=== PATIENT | male | born 2000 | race Caucasian/White ===

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

== ENCOUNTER 2021-12-07 07:26 | Emergency (ER) | payer OTHER ==
--- OUTSIDE RECORDS SUMMARY | 2021-12-07 07:29 | XMS REPORT | Continuity of Care Document ---
:2000 Author Organization [facility] t Address [facility] access [facility] Dave [address] [place] [id number] Care Team Providers Name Role Phone Unavailable Unavailable Unavailable Problems This patient has no known problems. Allergies, Adverse Reactions, Alerts This patient has no known allergies or adverse reactions. Medications This patient has no known medications. Procedures This patient has no known procedures. Encounters Start End Encounter Admission Attending Care Care Encounter Source Date/Time Date/Time Type Type Clinicians Facility Department ID 2021-10-02 Outpatient [facility] [id number] Common 13:34:03 [facility] Results This patient has no known results.
--- NOTE | 2021-12-07 08:43 | ER ---
Nurse's Notes [facility] Name: Lencho Kirby Age: 21 yrs Sex: Male : 2000 Arrival Date: 12/07/2021 Time: 07:28 Bed 9 Private MD: Diagnosis: Displaced fracture of shaft of fifth metacarpal bone, left hand, initial encounter for closed fracture Presentation: 12/07 07:31 Chief complaint: Patient states: "I think I re-broke my left hand.". Coronavirus jd3 screen: At this time, the client does not indicate any symptoms associated with coronavirus-19. Ebola Screen: No symptoms or risks identified at this time. Initial Sepsis Screen: Does the patient meet any 2 criteria? No. Patient's initial sepsis screen is negative. Does the patient have a suspected source of infection? No. Patient's initial sepsis screen is negative. Risk Assessment: Do you want to hurt yourself or someone else? Patient reports no desire to harm self or others. Onset of symptoms was December 06, 2021. 07:31 Method Of Arrival: Ambulatory jd3 07:31 Acuity: KING 4 jd3 Historical: - Allergies: 07:32 Codeine; jd3 - Home Meds: 07:32 Remeron Oral [Active]; jd3 - PMHx: 07:32 None; jd3 - PSHx: 07:32 None; jd3 - Immunization history:: Adult Immunizations up to date, Client reports having NOT received the Covid vaccine. - Social history:: Smoking status: Reported history of juuling and/or vaping. Screenin:01 Abuse screen: Denies threats or abuse. Denies injuries from another. Nutritional iw screening: No deficits noted. Tuberculosis screening: No symptoms or risk factors identified. Fall Risk None identified. Assessment: 09:01 General: Appears in no apparent distress. Behavior is calm, cooperative. Pain: iw Complains of pain in left hand. Neuro: Level of Consciousness is awake, alert, obeys commands, Oriented to person, place, time, situation. Derm: Skin is intact, is healthy with good turgor. Musculoskeletal: Range of motion: intact in all extremities. Vital Signs: 07:33 BP 144 / 84; Pulse 85; Resp 17 S; Temp 98.1(TE); Pulse Ox 100% on R/A; Weight 99.79 kg jd3 (R); Height 6 ft. 0 in. (182.88 cm) (R); Pain 7/10; 07:33 Body Mass Index 29.84 (99.79 kg, 182.88 cm) jd3 ED Course: 07:28 Patient arrived in ED. as 07:32 Triage completed. jd3 07:33 Arm band placed on. jd3 07:35 Emperatriz Villarreal, RN is Primary Nurse. iw 07:37 Ishan Lopez MD is Attending Physician. kdr 08:35 Hand Left 3 View XRAY In Process Unspecified. EDMS 08:56 Orthoglass splint: Ulnar gutter/Boxer splint applied on left forearm. em1 09:00 Patient has correct armband on for positive identification. iw 09:01 No provider procedures requiring assistance completed. Patient did not have IV access iw during this emergency room visit. Administered Medications: 08:50 Drug: Ibuprofen 800 mg Route: PO; iw 09:00 Follow up: Response: No adverse reaction iw Medication: 09:00 VIS not applicable for this client. iw Outcome: 08:42 Discharge ordered by . kdr 09:01 Discharged to home ambulatory. iw 09:01 Condition: good 09:01 Discharge instructions given to patient, Instructed on discharge instructions, follow up and referral plans. medication usage, Demonstrated understanding of instructions, follow-up care, medications, Prescriptions given X 1. 09:02 Patient left the ED. iw Signatures: Dispatcher [employer] EDMS Ishan Lopez MD MD kdr Lin Medina as Emperatriz Villarrela, RN RN iw Sathya Medina em1 Jonathan Cruz RN RN jd3 Corrections: (The following items were deleted from the chart) 07:33 07:32 PMHx: None; jd3 jd3
--- NOTE | 2021-12-07 08:43 | EDPHYS ---
Physician Documentation [facility] Name: Lencho Kirby Age: 21 yrs Sex: Male : 2000 Arrival Date: 12/07/2021 Time: 07:28 Bed 9 Private MD: ED Physician Ishan Lopez HPI: 12/07 07:43 This 21 yrs old Male presents to ER via Ambulatory with complaints of Hand Injury. kdr 07:43 The patient or guardian reports decreased range of motion, deformity, injury, pain, kdr swelling, tenderness. The complaints affect the medial aspect of left hand. Context: The problem was sustained at an unknown location, resulted from. Onset: The symptoms/episode began/occurred yesterday. Modifying factors: The symptoms are alleviated by nothing, the symptoms are aggravated by movement. Associated signs and symptoms: The patient has no apparent associated signs or symptoms. Severity of symptoms: At their worst the symptoms were mild, in the emergency department the symptoms are unchanged. The patient has experienced similar episodes in the past, Patient states he had previously injured the same hand a few weeks ago. It is unknown whether or not the patient has recently seen a physician. Historical: - Allergies: 07:32 Codeine; jd3 - Home Meds: 07:32 Remeron Oral [Active]; jd3 - PMHx: 07:32 None; jd3 - PSHx: 07:32 None; jd3 - Immunization history:: Adult Immunizations up to date, Client reports having NOT received the Covid vaccine. - Social history:: Smoking status: Reported history of juuling and/or vaping. ROS: 07:43 Constitutional: Negative for fever, chills, and weight loss. kdr 07:43 MS/extremity: Positive for injury or acute deformity, decreased range of motion, pain, swelling, tenderness, of the medial aspect of left hand, dorsum of left hand and inner aspect of left palm. Exam: 07:43 Constitutional: This is a well developed, well nourished patient who is awake, alert, kdr and in no acute distress. Head/Face: Normocephalic, atraumatic. Eyes: Pupils equal round and reactive to light, extra-ocular motions intact. Lids and lashes normal. Conjunctiva and sclera are non-icteric and not injected. Cornea within normal limits. Periorbital areas with no swelling, redness, or edema. Chest/axilla: Normal chest wall appearance and motion. Nontender with no deformity. No lesions are appreciated. Cardiovascular: Regular rate and rhythm with a normal S1 and S2. No gallops, murmurs, or rubs. Normal PMI, no JVD. No pulse deficits. 07:43 Musculoskeletal/extremity: Extremities: grossly normal except: noted in the left hand: decreased ROM, pain, swelling, tenderness. Vital Signs: 07:33 BP 144 / 84; Pulse 85; Resp 17 S; Temp 98.1(TE); Pulse Ox 100% on R/A; Weight 99.79 kg jd3 (R); Height 6 ft. 0 in. (182.88 cm) (R); Pain 7/10; 07:33 Body Mass Index 29.84 (99.79 kg, 182.88 cm) jd3 MDM: 08:42 Patient medically screened. kdr 11:58 Data reviewed: vital signs, nurses notes, radiologic studies. Counseling: I had a kdr detailed discussion with the patient and/or guardian regarding: the historical points, exam findings, and any diagnostic results supporting the discharge/admit diagnosis, radiology results, the need for outpatient follow up. 12/07 07:43 Order name: Hand Left 3 View XRAY kdr 12/07 08:43 Order name: Ulnar Gutter splint; Complete Time: 08:56 kdr Administered Medications: 08:50 Drug: Ibuprofen 800 mg Route: PO; iw 09:00 Follow up: Response: No adverse reaction iw Disposition Summary: 12/07/21 08:42 Discharge Ordered Location: Home kdr Problem: new kdr Symptoms: have improved kdr Condition: Stable kdr Diagnosis - Displaced fracture of shaft of fifth metacarpal bone, left hand, initial encounter kdr for closed fracture Followup: kdr - With: Private Physician - When: 2 - 3 days - Reason: If symptoms return, Further diagnostic work-up, Recheck today's complaints, Continuance of care, Re-evaluation by your physician Discharge Instructions: - Discharge Summary Sheet kdr - Boxer's Fracture kdr Forms: - Medication Reconciliation Form kdr - Thank You Letter kdr - Work release form eb Prescriptions: - Tramadol 50 mg Oral Tablet - take 1 tablet by ORAL route every 8 hours As needed as needed; 6 tablet; kdr Refills: 0, Product Selection Permitted Signatures: Dispatcher [employer] Ishan Henry MD MD kdr Emperatriz Villarreal RN RN iw Davies, Jonathon, RN RN jd3 Corrections: (The following items were deleted from the chart) 07:33 07:32 PMHx: None; jd3 jd3
[2021-12-07] MEDS ORDERED: IBUPROFEN 400 MG TAB ONE (08:54)
--- NOTE | 2021-12-07 08:56 | RAD REPORT ---
EXAM DESCRIPTION: RAD - Hand Left 3 View - 12/07/2021 8:38 am CLINICAL HISTORY: Pain, history of left hand fracture 3 weeks earlier with possible re-injury COMPARISON: None. FINDINGS: No imaging from the injury 3 weeks earlier is available for correlation. There is no repor t or other specifics regarding the injury. The patient has a fracture line present distal shaft of the fifth metacarpal. There is approximately 20 degrees ventral angulation of the distal fracture fragment. The fracture line is indistinct and th ere does appear to be remodeling along the ventral margin of the fifth metacarpal. There is no distra ction along the fracture line. No other fracture or acute bone finding. No joint abnormality. Soft tissue swelling around the fractu re site is still present. No foreign body seen. IMPRESSION: Incompletely healed fracture of the left fifth metacarpal as detailed. There is no prior imaging or report for correlation. New fracture at this site is unlikely.
[2021-12-07 09:07] VITALS: BP 144/84; TEMP 98.1; O2SAT 100
== END 2021-12-07 09:02 | disposition home or self-care (01) ==
LOC: ER 07:26
PROC: 2W3KX1Z Immobilization of Left Finger using Splint (ICD-10-PCS; principal; 2021-12-07)
DX: S62.327A Displaced fracture of shaft of fifth metacarpal bone, left hand, initial encounter for closed fracture (principal); Z88.5 Allergy status to narcotic agent
CPT/HCPCS: 99284

== ENCOUNTER 2024-05-30 05:53 | Emergency (ER) | payer OTHER ==
--- OUTSIDE RECORDS SUMMARY | 2024-05-30 05:56 | XMS REPORT | Continuity of Care Document ---
Author Name Unknown Address [address] [facility] [place] [address] [facility] thconnect Address [address] [facility] [address] [place] [address] Care Team Providers Care Teacher Of The Visually Impaired Name Role Phone Unavailable Unavailable Unavailable Encounters Start Date/Time End Date/Time Encounter Type Admission Type Attending Clinicians Care Facility Care Department Encounter ID Source 2023-05-29 10:15:00 Outpatient [facility] [id number] [facility] 2021-10-02 13:34:03 Outpatient [facility] [id number] [facility]
[2024-05-30] MEDS ORDERED: KETOROLAC 30 MG/ML INJ ONE (06:12)
[2024-05-30] MEDS ORDERED: NA CHLORIDE 0.9% 1,000 ML ONE (06:12)
[2024-05-30 06:23] LABS: Absolute Eosinophils 0.1 K/uL (0-0.5); Absolute Lymphocytes (CBC) 0.7 K/uL (0.7-4.9); Absolute Monocytes 0.5 K/uL (0.1-1.3); Absolute Neutrophil 3.9 K/uL (1.8-8.0); Basophils % 0.4 % (0-1.3); Eosinophils % 1.5 % (0-4.4); Hematocrit 46.5 % (39.6-49.0); Hemoglobin 15.9 g/dL (13.6-17.9); Lymphocytes % 12.6 % (15.3-44.8); MCHC 34.2 g/dL (32.0-36.0); MCV 84.7 fL (80-100); Monocytes % 10.2 % (3.3-12.3); Neutrophils % 75.3 % (41.7-73.7); Nucleated Red Blood Cells % 0.1 % (0-0); Platelets 193 thou/uL (152-406); RBC Red Blood Cell Count 5.49 M/uL (4.33-5.43)
[2024-05-30 06:48] LABS: Albumin 3.5 g/dL (3.4-5.0); Albumin/Globulin Ratio 0.8 (1.1-1.8); Anion Gap 10.8 mEq/L (5.0-15.0); Bilirubin Total 0.5 mg/dL (0.2-1.0); Globulin 4.6 g/dL (2.3-3.5); Protein, Total 8.1 g/dL (6.4-8.2)
[2024-05-30 06:53] LABS: Potassium 3.8 mEq/L (3.5-5.1)
[2024-05-30 07:16] LABS: SARS-CoV-2 Antigen CONTROL BLUE LINE VIS/BG OK; SARS-CoV-2 Antigen Rapid Res Negative (Negative)
--- NOTE | 2024-05-30 07:41 | RAD REPORT ---
EXAMINATION: CT ABDOMEN AND PELVIS WITH CONTRAST CLINICAL INDICATION: Abdominal pain TECHNIQUE: CT abdomen and pelvis was performed, after the administration of 100 cc Isovue-300.. Sagit james and coronal reconstructions were obtained. One or more of the following dose reduction techniques were used: Automated exposure control, adjustment of the mA and kV according to patient si ze, and iterative reconstruction. Unless otherwise specified, incidental findings do not require dedicated imaging follow-up. [id number]. Oral contrast was not given which limits evaluation of bowel and appendix. COMPARISON: .None FINDINGS: Liver, spleen, pancreas, adrenals and kidneys appear unremarkable No evidence of diverticulitis. Normal appendix. Multiple fluid-filled loops of borderline dilated loops of ileum are present. Small umbilical hernia contains fat. : IMPRESSION: Multiple fluid-filled loops of borderline dilated loops of ileum probably an enteritis.. A partial sm all bowel obstruction can also have this appearance. If the patient's symptoms persists then follow-up abdominal plain film series would be recommended.
--- NOTE | 2024-05-30 09:02 | EDPHYS ---
Physician Documentation [facility] Name: Lencho Kirby Age: 24 yrs Sex: Male : 2000 Arrival Date: 05/30/2024 Time: 05:53 Bed 5 Private MD: ED Physician Ap Bennett HPI: 05/30 06:25 This 24 yrs old Male presents to ER via Ambulatory with complaints of sp3 Nausea/Vomiting/Diarrhea. 06:29 24-year-old male with no past medical history presents with nausea, vomiting, diarrhea sp3 and diffuse abdominal pain that is progressively gotten worse over the last 24 hours. Patient also states he has bodyaches extending from his waist bilaterally into his lower extremities. He denies any fever, trauma, cough, URI symptoms, chest pain, shortness of breath, back pain, symptoms, rash, known sick contacts, travel history, or any other signs or symptoms on ROS at this time. No blood or mucus in emesis or diarrhea.. Historical: - Allergies: 06:05 Codeine; lg3 - Home Meds: 06:05 None [Active]; lg3 - PMHx: 06:05 None; lg3 - PSHx: 06:05 None; lg3 - Immunization history:: Adult Immunizations up to date. - Infectious Disease History:: Denies. - Social history:: Smoking status: Reported history of juuling and/or vaping. Patient uses alcohol, occasionally. street drugs, marijuana. ROS: 06:30 Constitutional: Negative for fever, chills, and weight loss, Eyes: Negative for injury, sp3 pain, redness, and discharge, ENT: Negative for injury, pain, and discharge, Neck: Negative for injury, pain, and swelling, Cardiovascular: Negative for chest pain, palpitations, and edema, Respiratory: Negative for shortness of breath, cough, wheezing, and pleuritic chest pain, Back: Negative for injury and pain, : Negative for injury, bleeding, discharge, and swelling, MS/Extremity: Negative for injury and deformity, Skin: Negative for injury, rash, and discoloration, Neuro: Negative for headache, weakness, numbness, tingling, and seizure, Psych: Negative for depression, anxiety, suicide ideation, homicidal ideation, and hallucinations, Allergy/Immunology: Negative for hives, rash, and allergies, Endocrine: Negative for neck swelling, polydipsia, polyuria, polyphagia, and marked weight changes, Hematologic/Lymphatic: Negative for swollen nodes, abnormal bleeding, and unusual bruising, 06:30 All other systems are negative, Exam: 06:30 Constitutional: This is a well developed, well nourished patient who is awake, alert, sp3 and in no acute distress. Head/Face: Normocephalic, atraumatic. Eyes: Pupils equal round and reactive to light, extra-ocular motions intact. Lids and lashes normal. Conjunctiva and sclera are non-icteric and not injected. Cornea within normal limits. Periorbital areas with no swelling, redness, or edema. Neck: Trachea midline, no thyromegaly or masses palpated, and no cervical lymphadenopathy. Supple, full range of motion without nuchal rigidity, or vertebral point tenderness. No Meningismus. Chest/axilla: Normal chest wall appearance and motion. Nontender with no deformity. No lesions are appreciated. Cardiovascular: Regular rate and rhythm with a normal S1 and S2. No gallops, murmurs, or rubs. Normal PMI, no JVD. No pulse deficits. Respiratory: Lungs have equal breath sounds bilaterally, clear to auscultation and percussion. No rales, rhonchi or wheezes noted. No increased work of breathing, no retractions or nasal flaring. Back: No spinal tenderness. No costovertebral tenderness. Full range of motion. Skin: Warm, dry with normal turgor. Normal color with no rashes, no lesions, and no evidence of cellulitis. MS/ Extremity: Pulses equal, no cyanosis. Neurovascular intact. Full, normal range of motion. Neuro: Awake and alert, GCS 15, oriented to person, place, time, and situation. Cranial nerves II-XII grossly intact. Motor strength 5/5 in all extremities. Sensory grossly intact. Cerebellar exam normal. Normal gait. Psych: Awake, alert, with orientation to person, place and time. Behavior, mood, and affect are within normal limits. 06:30 Abdomen/GI: Diffuse pain to palpation without peritoneal signs, rebound or guarding., Vital Signs: 06:03 BP 147 / 99; Pulse 89; Resp 17 S; Temp 99.5(O); Pulse Ox 98% on R/A; Weight 99.79 kg lg3 (R); Height 6 ft. 0 in. (R); Pain 7/10; 09:22 BP 141 / 85; Pulse 82; Resp 16; Pulse Ox 99% ; bp 06:03 Body Mass Index 29.84 (99.79 kg, 182.88 cm) lg3 06:03 Pain Scale: Adult lg3 MDM: 05:58 Medical Screening Exam initiated sp3 06:31 Data reviewed: vital signs, nurses notes, lab test result(s), radiologic studies. ED sp3 course: 24-year-old male with abdominal pain, GI symptoms and bodyaches. Differential diagnosis includes foodborne illness, gastroenteritis, other enteritis, viral illness, influenza, COVID-19, among others. I am not highly suspicious of , vascular or other pathology. Workup will include CT scan of the abdomen pelvis, general labs, urine analysis, viral swabs and general supportive care with initial medications including normal saline and ketorolac IV. Patient will be signed out to daytime physician for final reevaluation and disposition with probable discharge home if workup is negative.. 07:00 Transition of care: Care assumed from Rylan Stafford MD. ED course: 24 yo male presents ms3 for N/V/D, abdominal pain. He is currently pending CT abdomen and pelvis and labs.. 09:03 Differential diagnosis: Nonspecific abd pain, gastritis, viral gastroenteritis, ms3 gastroenteritis. I considered the following discharge prescriptions or medication management in the emergency department Medications were administered in the Emergency Department. See MAR. Counseling: I had a detailed discussion with the patient and/or guardian regarding the historical points, exam findings, and any diagnostic results supporting the discharge/admit diagnosis, lab results, radiology results, the need for outpatient follow up, to return to the emergency department if symptoms worsen or persist or if there are any questions or concerns that arise at home. Special discussion: Based on the patient's Hx, exam, and Dx evaluation, there is no indication for emergent surgery or inpatient Tx. It is understood by the patient/guardian that if the Sx's persist or worsen they need to return immediately for re-evaluation. ED course: Patient currently tolerating crackers and Sprite. Abdomen benign, patient alert and orient x 4, in no apparent distress, improved. Discussed labs and imaging with patient and his mother. They are agreeable to discharge at this time. All questions were answered. Return precautions discussed include worsening symptoms, or any other concerns. Patient to follow-up with Dr. Stafford in 2 to 3 days.. 05/30 06:09 Order name: CBC with Diff; Complete Time: 07:46 sp3 05/30 06:09 Order name: CMP; Complete Time: 07:46 sp3 05/30 06:09 Order name: Lipase; Complete Time: 07:46 sp3 05/30 06:09 Order name: Flu; Complete Time: 07:46 sp3 05/30 06:09 Order name: SARS RAPID; Complete Time: 07:46 sp3 05/30 06:09 Order name: CT Abd/Pelvis - IV Contrast Only; Complete Time: 07:46 sp3 05/30 06:09 Order name: IV Saline Lock; Complete Time: 06:16 sp3 05/30 06:09 Order name: Labs collected and sent; Complete Time: 06:16 sp3 Administered Medications: 06:17 Drug: TORadol - Ketorolac IVP 15 mg IVP once Route: IVP; Site: right antecubital; lg3 09:22 Follow up: Response: No adverse reaction bp 06:17 Drug: NS 0.9% IV 1000 ml IV at 1 bolus Per protocol; to be given as a bolus over 60 lg3 minutes Route: IV; Rate: 1 bolus; Site: right antecubital; 09:22 Follow up: IV Status: Completed infusion bp Disposition Summary: 05/30/24 09:02 Discharge Ordered Notes: Location: Home ms3 Condition: Stable ms3 Diagnosis - Nausea with vomiting, unspecified ms3 - Diarrhea, unspecified ms3 - Abdominal pain, Generalized ms3 Followup: ms3 - With: Weston Stafford DO - When: 2 - 3 days - Reason: Re-evaluation by your physician Discharge Instructions: - Discharge Summary Sheet ms3 - Food Choices to Help Relieve Diarrhea, Adult ms3 - Diarrhea, Adult ms3 - Nausea and Vomiting, Adult ms3 Forms: - Work release form bd - Medication Reconciliation Form ms3 - Antibiotic Education ms3 - Prescription Opioid Use ms3 - Patient Portal Instructions ms3 - Leadership Thank You Letter ms3 Prescriptions: - ondansetron 4 mg Oral Tablet,disintegrating - take 1 tablet ORAL route every 8 hours for 5 days; 15 tablet; Refills: 0, ms3 Product Selection Permitted Signatures: Dispatcher [employer] EDMS Louisa Durham RN RN lg3 Ap Bennett, DO ms3 Rylan Stafford MD MD sp3 Shayne Velasco RN bp Corrections: (The following items were deleted from the chart) 06:06 06:05 Home Meds: Remeron Oral; lg3 lg3 06:10 06:10 Abdomen Pelvis W Con+CT.RAD.BRZ ordered. EDMS EDMS 09:04 09:03 ED course: Patient currently tolerating crackers and Sprite. Discussed labs and ms3 imaging with patient and his mother. They are agreeable to discharge at this time. All questions were answered. Return precautions discussed include worsening symptoms, or any other concerns. Patient to follow-up with Dr. Stafford in 2 to 3 days.. ms3
--- NOTE | 2024-05-30 09:02 | ER ---
Nurse's Notes [facility] Name: Lencho Kirby Age: 24 yrs Sex: Male : 2000 Arrival Date: 05/30/2024 Time: 05:53 Bed 5 Private MD: Diagnosis: Nausea with vomiting, unspecified;Diarrhea, unspecified;Abdominal pain, Generalized Presentation: 05/30 06:03 Chief complaint: Patient states: N/V/D X2 days with low grade fever. pain to bilateral lg3 hips and knees. Coronavirus screen: Client denies travel out of the [place] in the last 14 days. At this time, the client does not indicate any symptoms associated with coronavirus-19. Ebola Screen: No symptoms or risks identified at this time. Initial Sepsis Screen: Does the patient meet any 2 criteria? No. Patient's initial sepsis screen is negative. Does the patient have a suspected source of infection? No. Patient's initial sepsis screen is negative. Risk Assessment: Do you want to hurt yourself or someone else? Patient reports no desire to harm self or others. Onset of symptoms was May 28, 2024. 06:03 Method Of Arrival: Ambulatory lg3 06:03 Acuity: KING 3 lg3 Triage Assessment: 06:05 General: Appears in no apparent distress. comfortable, Behavior is calm, cooperative. lg3 Pain: Complains of pain in bilateral hips, bilateral knees. EENT: No deficits noted. No signs and/or symptoms were reported regarding the EENT system. Neuro: No deficits noted. Zuñiga Agitation-Sedation Scale (RASS): 0 - Alert and Calm Level of Consciousness is awake, alert, obeys commands, Oriented to person, place, time, situation. Cardiovascular: No deficits noted. Denies chest pain, shortness of breath, Capillary refill < 3 seconds Clubbing of nail beds is absent JVD is absent Patient's skin is warm and dry. Respiratory: No deficits noted. Airway is patent Respiratory effort is even, unlabored, Respiratory pattern is regular, symmetrical. GI: Abdomen is round non-distended, Bowel sounds present X 4 quads. Abd is soft X 4 quads Reports lower abdominal pain, upper abdominal pain, diarrhea, nausea, vomiting. : No signs and/or symptoms were reported regarding the genitourinary system. Derm: No deficits noted. No signs and/or symptoms reported regarding the dermatologic system. Skin is intact, is healthy with good turgor, Skin is dry, Skin is normal, Skin temperature is warm. Musculoskeletal: No deficits noted. Circulation, motion, and sensation intact. Range of motion: intact in all extremities, Reports weakness in right leg and left leg. Historical: - Allergies: 06:05 Codeine; lg3 - Home Meds: 06:05 None [Active]; lg3 - PMHx: 06:05 None; lg3 - PSHx: 06:05 None; lg3 - Immunization history:: Adult Immunizations up to date. - Infectious Disease History:: Denies. - Social history:: Smoking status: Reported history of juuling and/or vaping. Patient uses alcohol, occasionally. street drugs, marijuana. Screenin:07 [facility] ED Fall Risk Assessment (Adult) History of falling in the last 3 months, lg3 including since admission No falls in past 3 months (0 pts) Confusion or Disorientation No (0 pts) Intoxicated or Sedated No (0 pts) Impaired Gait No (0 pts) Mobility Assist Device Used No (0 pt) Altered Elimination No (0 pt) Score/Fall Risk Level 0 - 2 = Low Risk Oriented to surroundings, Maintained a safe environment, Educated pt \T\ family on fall prevention, incl call for assistance when getting out of bed, Assessed \T\ reinforced patient's understanding of fall precautions. Abuse screen: Denies threats or abuse. Denies injuries from another. Nutritional screening: No deficits noted. Tuberculosis screening: No symptoms or risk factors identified. Assessment: 06:07 General: see triage assessment. lg3 06:07 GI: Abdomen is round non-distended, Bowel sounds present X 4 quads. Abd is soft X 4 lg3 quads Reports lower abdominal pain, upper abdominal pain, diarrhea, nausea, vomiting. 07:15 Reassessment: Patient appears in no apparent distress at this time. Patient and/or hb family updated on plan of care and expected duration. Pain level reassessed. Patient is alert, oriented x 3, equal unlabored respirations, skin warm/dry/pink. 08:30 Reassessment: Patient appears in no apparent distress at this time. Patient and/or hb family updated on plan of care and expected duration. Pain level reassessed. Patient is alert, oriented x 3, equal unlabored respirations, skin warm/dry/pink. Vital Signs: 06:03 BP 147 / 99; Pulse 89; Resp 17 S; Temp 99.5(O); Pulse Ox 98% on R/A; Weight 99.79 kg lg3 (R); Height 6 ft. 0 in. (R); Pain 7/10; 09:22 BP 141 / 85; Pulse 82; Resp 16; Pulse Ox 99% ; bp 06:03 Body Mass Index 29.84 (99.79 kg, 182.88 cm) lg3 06:03 Pain Scale: Adult lg3 ED Course: 05:57 Patient arrived in ED. jj6 05:58 Rylan Stafford MD is Attending Physician. sp3 06:05 Triage completed. lg3 06:05 Arm band placed on right wrist. lg3 06:07 Patient has correct armband on for positive identification. Placed in gown. Bed in low lg3 position. Call light in reach. Side rails up X 1. Client placed on continuous cardiac and pulse oximetry monitoring. NIBP monitoring applied. Door closed. Noise minimized. Warm blanket given. Pillow given. 06:16 Louisa Durham, RN is Primary Nurse. lg3 06:16 Initial lab(s) drawn, by ED staff, sent to lab. COVID swab sent to lab. Flu and/or RSV lg3 swab sent to lab. Inserted saline lock: 20 gauge in right antecubital area, using aseptic technique. Blood collected. Flushed with 10 mL NS. 07:05 Primary Nurse role handed off by Louisa Durham, SAMIA bp 07:05 Shayne Velasco, SAMIA is Primary Nurse. bp 07:23 CT Abd/Pelvis - IV Contrast Only In Process Unspecified. EDMS 07:46 Attending Physician role handed off by Rylan Stafford MD ms3 07:46 Ap Bennett DO is Attending Physician. ms3 09:01 Weston Stafford DO is Referral Physician. ms3 09:22 Provided Education on: NA. bp 09:22 No provider procedures requiring assistance completed. IV discontinued, intact, bp bleeding controlled, No redness/swelling at site. Pressure dressing applied. Administered Medications: 06:17 Drug: TORadol - Ketorolac IVP 15 mg IVP once Route: IVP; Site: right antecubital; lg3 09:22 Follow up: Response: No adverse reaction bp 06:17 Drug: NS 0.9% IV 1000 ml IV at 1 bolus Per protocol; to be given as a bolus over 60 lg3 minutes Route: IV; Rate: 1 bolus; Site: right antecubital; :22 Follow up: IV Status: Completed infusion bp Medication: 09:22 VIS not applicable for this client. bp Outcome: 09:02 Discharge ordered by . ms3 09:22 Discharged to home ambulatory, with family, bp :22 Condition: stable :22 Discharge instructions given to patient, family, Instructed on discharge instructions, follow up and referral plans. medication usage, Demonstrated understanding of instructions, follow-up care, medications, Prescriptions given X 1, 09:32 Patient left the ED. iw Signatures: Dispatcher [employer] EDMS Emperatriz Villarreal RN RN iw Galina Corbin RN RN Shayne Velasco RN SAMIA bp Louisa Durham RN SAMIA lg3 Ap Bennett DO DO ms3 Rylan Stafford MD MD sp3 Meghna Mason jj6 Corrections: (The following items were deleted from the chart) 06:06 06:05 Home Meds: Remeron Oral; lg3 lg3
[2024-05-30 09:47] VITALS: BP 147/99; TEMP 99.5; O2SAT 98
== END 2024-05-30 09:32 | disposition home or self-care (01) ==
LOC: ER 05:53
DX: R11.2 Nausea with vomiting, unspecified (principal); R19.7 Diarrhea, unspecified; R10.84 Generalized abdominal pain; Z11.52 Encounter for screening for COVID-19
CPT/HCPCS: 96361; 85025; 36415; 83690; 80053; 87804 ×2; 74177; 96374; 99284; 87811; Q9967; J7030

== ENCOUNTER 2024-06-04 05:33 | Emergency (ER) | payer OTHER ==
--- OUTSIDE RECORDS SUMMARY | 2024-06-04 05:37 | XMS REPORT | Continuity of Care Document ---
Author Name Unknown Address [address] [facility] [address] [place] [address] [facility] thconnect Address [address] [facility] [address] [place] [address] Care Team Providers Care Wireless Store Manager Name Role Phone Unavailable Unavailable Unavailable Encounters Start Date/Time End Date/Time Encounter Type Admission Type Attending Clinicians Care Facility Care Department Encounter ID Source 2023-05-29 10:15:00 Outpatient [facility] [id number] [facility] 2021-10-02 13:34:03 Outpatient [facility] [id number] [facility]
[2024-06-04] MEDS ORDERED: ONDANSETRON 4 MG/2 ML VIAL ONE (06:43)
[2024-06-04] MEDS ORDERED: DICYCLOMINE HCL 10 MG CAP ONE (06:44)
[2024-06-04] MEDS ORDERED: FAMOTIDINE 20 MG TAB ONE (06:44)
[2024-06-04] MEDS ORDERED: MAGNES/ALUMIN/SIMET 30ML UCUP ONE (06:44)
[2024-06-04] MEDS ORDERED: NA CHLORIDE 0.9% 1,000 ML ONE (06:44)
[2024-06-04 06:55] LABS: Absolute Eosinophils 0.1 K/uL (0-0.5); Absolute Lymphocytes (CBC) 1.7 K/uL (0.7-4.9); Absolute Monocytes 0.4 K/uL (0.1-1.3); Absolute Neutrophil 2.2 K/uL (1.8-8.0); Basophils % 0.4 % (0-1.3); Eosinophils % 2.8 % (0-4.4); Hematocrit 43.1 % (39.6-49.0); Hemoglobin 14.7 g/dL (13.6-17.9); Lymphocytes % 37.6 % (15.3-44.8); MCH 28.9 pg (27.0-35.0); MCHC 34.2 g/dL (32.0-36.0); MCV 84.4 fL (80-100); MPV 8.7 fL (7.6-11.3); Monocytes % 8.6 % (3.3-12.3); Neutrophils % 50.6 % (41.7-73.7); Nucleated Red Blood Cells % 0.2 % (0-0); Platelets 208 thou/uL (152-406); RBC Red Blood Cell Count 5.11 M/uL (4.33-5.43); Red Cell Distribution Width 13.7 % (12.1-15.2)
[2024-06-04 07:01] LABS: Albumin 3.5 g/dL (3.4-5.0); Anion Gap 6.7 mEq/L (5.0-15.0); Bilirubin Total 0.9 mg/dL (0.2-1.0); Globulin 3.6 g/dL (2.3-3.5); Potassium 3.7 mEq/L (3.5-5.1); Protein, Total 7.1 g/dL (6.4-8.2)
--- NOTE | 2024-06-04 07:09 | RAD REPORT ---
EXAM: Abdomen Acute Series HISTORY: Abdominal pain COMPARISON: CT 05/30/2024 FINDINGS: The lungs are clear bilaterally. The cardiomediastinal silhouette is within normal limits. Nonobstructive bowel gas pattern. No free air or air-fluid levels are seen on upright examination. No suspicious calcifications are seen. No acute osseous abnormality. Other: n/a IMPRESSION 1. Nonobstructive bowel gas pattern. 2. No acute cardiopulmonary disease.
--- NOTE | 2024-06-04 07:40 | ER ---
Nurse's Notes [facility] Name: Lencho Kirby Age: 24 yrs Sex: Male : 2000 Arrival Date: 06/04/2024 Time: 05:33 Bed 16 Private MD: Diagnosis: Acute viral gastroenteritis , Acute Persistent Diarrhea Presentation: 06/04 05:39 Chief complaint: Patient states: I was here on Thursday due to diarrhea, indigestion and ha1 I am still having small amounts of diarrhea and bloating of the abdomen. 05:39 Coronavirus screen: Client denies travel out of the [place] in the last 14 days. Ebola ha1 Screen: No symptoms or risks identified at this time. Initial Sepsis Screen: Does the patient meet any 2 criteria? No. Patient's initial sepsis screen is negative. Does the patient have a suspected source of infection? No. Patient's initial sepsis screen is negative. Risk Assessment: Do you want to hurt yourself or someone else? Patient reports no desire to harm self or others. Onset of symptoms was June 04, 2024. 05:39 Method Of Arrival: Ambulatory ha1 05:39 Acuity: KING 3 ha1 Triage Assessment: 05:39 General: Appears uncomfortable, Behavior is calm, cooperative. Pain: Denies pain. ha1 Neuro: Level of Consciousness is awake, alert, obeys commands, Oriented to person, place, time, situation. Cardiovascular: Patient's skin is warm and dry. Respiratory: Airway is patent Respiratory effort is even, unlabored, Respiratory pattern is regular, symmetrical. GI: Abdomen is round Reports diarrhea, flatulence. 05:39 Derm: Skin is pink, warm \T\ dry. ha1 Historical: - Allergies: 05:57 Codeine; ha1 - PMHx: 05:57 None; ha1 - Immunization history:: Adult Immunizations up to date. - Infectious Disease History:: Denies. - Social history:: Smoking status: Patient reports the use of cigarette tobacco products, denies chronic smoking, but will smoke occasionally. - Family history:: not pertinent. Screenin:39 [facility] ED Fall Risk Assessment (Adult) History of falling in the last 3 months, ha1 including since admission No falls in past 3 months (0 pts) Confusion or Disorientation No (0 pts) Intoxicated or Sedated No (0 pts) Impaired Gait No (0 pts) Mobility Assist Device Used No (0 pt) Altered Elimination No (0 pt) Score/Fall Risk Level 0 - 2 = Low Risk Oriented to surroundings, Maintained a safe environment, Educated pt \T\ family on fall prevention, incl call for assistance when getting out of bed, Hourly rounding (assess needs \T\ fall precautionary measures) done. Abuse screen: Denies threats or abuse. Denies injuries from another. Nutritional screening: No deficits noted. Tuberculosis screening: No symptoms or risk factors identified. Assessment: 06:15 General: Appears in no apparent distress. uncomfortable, Behavior is calm, cooperative. kj2 Pain: Complains of pain in abdomen Pain currently is 6 out of 10 on a pain scale. Neuro: Level of Consciousness is awake, alert, obeys commands. Cardiovascular: Patient's skin is warm and dry. Respiratory: Airway is patent Respiratory effort is unlabored. GI: Reports upper abdominal pain, nausea. 07:00 Reassessment: Patient appears in no apparent distress at this time. Patient and/or kj2 family updated on plan of care and expected duration. Pain level reassessed. Patient is alert, oriented x 3, equal unlabored respirations, skin warm/dry/pink. Vital Signs: 05:39 BP 148 / 92; Pulse 68; Resp 18 S; Temp 97.6; Pulse Ox 98% on R/A; Weight 104.33 kg; ha1 Height 5 ft. 9 in. ; 07:39 BP 124 / 84; Pulse 64; Resp 20; Pulse Ox 100% on R/A; kj2 05:39 Body Mass Index 33.96 (104.33 kg, 175.26 cm) ha1 Ana Coma Score: 06:34 Eye Response: spontaneous(4). Motor Response: obeys commands(6). Verbal Response: sp4 oriented(5). Total: 15. ED Course: 05:37 Patient arrived in ED. gm2 05:39 Patient has correct armband on for positive identification. Bed in low position. Call ha1 light in reach. Side rails up X 1. 05:40 Elia Guallpa MD is Attending Physician. sp4 05:57 Triage completed. ha1 06:35 Leesa Aldana RN is Primary Nurse. kj2 06:45 No provider procedures requiring assistance completed. kj2 06:57 Inserted saline lock: 20 gauge in right antecubital area, using aseptic technique. kj2 Blood collected. Flushed with 10 mL NS. 07:05 Abdomen Acute Series XRAY In Process Unspecified. EDMS 07:10 Report given to SAMIA Pepe. kj2 07:55 Arm band placed on. ph 07:56 IV discontinued, intact, bleeding controlled, No redness/swelling at site. Pressure ph dressing applied. Administered Medications: 06:56 Drug: NS 0.9% IV 1000 ml IV at 1000 ml once; to be given as a bolus over 60 minutes kj2 Route: IV; Rate: 1000 ml; Site: right antecubital; 07:56 Follow up: Response: No adverse reaction; IV Status: Completed infusion; IV Intake: ph 1000ml 06:56 Not Given (Patient Refused): ondansetron 4 mg IVP once; over 2 minutes kj2 06:56 Drug: Famotidine PO 20 mg PO once Route: PO; kj2 07:35 Follow up: Response: No adverse reaction kj2 06:56 Drug: Alum-Mag Hydroxide-Simeth PO Suspension (200 mg-200 mg-20 mg/5 mL) 30 ml PO once kj2 Route: PO; 07:35 Follow up: Response: No adverse reaction kj2 06:56 Drug: Dicyclomine PO 20 mg PO once Route: PO; kj2 07:35 Follow up: Response: No adverse reaction kj2 Medication: 06:45 VIS not applicable for this client. kj2 Intake: 07:56 IV: 1000ml; Total: 1000ml. ph Outcome: 07:39 Discharge ordered by MD. case 07:56 Discharged to home ambulatory, ph 07:56 Condition: good 07:56 Discharge instructions given to patient, Instructed on discharge instructions, follow up and referral plans. medication usage, Demonstrated understanding of instructions, follow-up care, medications, Prescriptions given X 1, 07:56 Patient left the ED. ph Signatures: Dispatcher [employer] Brandy Calles RN RN ph Rosita Jasmine RN RN ha1 Elia Guallpa MD MD sp4 Jen Howard gm2 Leesa Aldana RN RN kj2
--- NOTE | 2024-06-04 07:40 | EDPHYS ---
Physician Documentation [facility] Name: Lencho Kirby Age: 24 yrs Sex: Male : 2000 Arrival Date: 06/04/2024 Time: 05:33 Bed 16 Private MD: ED Physician Elia Guallpa HPI: 06/04 05:47 This 24 yrs old Male presents to ER via Unassigned with complaints of sp4 Diarrhea. 06:34 Patient was here on 05/30/2024 with abdominal pain and diarrhea and was diagnosed with sp4 gastroenteritis. Patient states that his diarrhea has not improved now he is having indigestion and is also feeling unwell. . Historical: - Allergies: 05:57 Codeine; ha1 - PMHx: 05:57 None; ha1 - Immunization history:: Adult Immunizations up to date. - Infectious Disease History:: Denies. - Social history:: Smoking status: Patient reports the use of cigarette tobacco products, denies chronic smoking, but will smoke occasionally. - Family history:: not pertinent. ROS: 06:34 Constitutional: Negative for fever, chills, and weight loss, positive for diarrhea, sp4 abdominal discomfort, positive for indigestion 06:34 All other systems are negative, Exam: 06:34 Constitutional: This is a well developed, well nourished patient who is awake, alert, sp4 and in no acute distress. Head/Face: Normocephalic, atraumatic. Eyes: Pupils equal round and reactive to light, extra-ocular motions intact. Lids and lashes normal. Conjunctiva and sclera are not injected. Cornea within normal limits. Periorbital areas with no swelling, redness, or edema. ENT: Nares patent. No nasal discharge, no septal abnormalities noted. Tympanic membranes are normal and external auditory canals are clear. Oropharynx with no redness, swelling, or masses, exudates, or evidence of obstruction, uvula midline. Mucous membranes moist. Neck: Trachea midline, no thyromegaly or masses palpated, and no cervical lymphadenopathy. Supple, full range of motion without nuchal rigidity, or vertebral point tenderness. Chest/axilla: Normal chest wall appearance and motion. Nontender with no deformity. No lesions are appreciated. Cardiovascular: Regular rate and rhythm with a normal S1 and S2. No gallops, murmurs, or rubs. Normal PMI, no JVD. No pulse deficits. Respiratory: Lungs have equal breath sounds bilaterally, clear to auscultation and percussion. No rales, rhonchi or wheezes noted. No increased work of breathing, no retractions or nasal flaring. Abdomen/GI: Soft, with normal bowel sounds. No distension or tympany. No guarding or rebound. No evidence of tenderness throughout. Back: No spinal tenderness. No costovertebral tenderness. Skin: Warm, dry with normal turgor. Normal color with no rashes, no lesions, and no evidence of cellulitis. MS/ Extremity: Pulses equal, no cyanosis. Neurovascular intact. Full, normal range of motion. Neuro: Awake and alert, GCS 15, oriented to person, place, time, and situation. Cranial nerves II-XII grossly intact. Motor strength 5/5 in all extremities. Sensory grossly intact. Psych: Awake, alert, with orientation to person, place and time. Behavior, mood, and affect are within normal limits Vital Signs: 05:39 BP 148 / 92; Pulse 68; Resp 18 S; Temp 97.6; Pulse Ox 98% on R/A; Weight 104.33 kg; ha1 Height 5 ft. 9 in. ; 07:39 BP 124 / 84; Pulse 64; Resp 20; Pulse Ox 100% on R/A; kj2 05:39 Body Mass Index 33.96 (104.33 kg, 175.26 cm) ha1 Ana Coma Score: 06:34 Eye Response: spontaneous(4). Motor Response: obeys commands(6). Verbal Response: sp4 oriented(5). Total: 15. MDM: 06:02 Medical Screening Exam initiated sp4 20:04 Differential diagnosis: Nonspecific abd pain, gastritis, viral gastroenteritis, sp4 gastroenteritis. Data reviewed: vital signs, nurses notes, old medical records, lab test result(s), radiologic studies, plain films. Consideration of Admission/Observation Escalation of care including admission/observation considered. ED course: X-ray does not suggest bowel obstruction or ileus. Patient stable for discharge home.. 06/04 05:47 Order name: Influenza Screen (a \T\ B); Complete Time: 07:32 sp4 06/04 06:00 Order name: CBC with Diff; Complete Time: 07:32 sp4 06/04 06:00 Order name: CMP; Complete Time: 07:32 sp4 06/04 06:00 Order name: Lipase; Complete Time: 07:32 sp4 06/04 06:01 Order name: Abdomen Acute Series XRAY; Complete Time: 07:32 sp4 06/04 06:00 Order name: IV Saline Lock; Complete Time: 06:41 sp4 06/04 06:00 Order name: Labs collected and sent; Complete Time: 06:41 sp4 Administered Medications: 06:56 Drug: NS 0.9% IV 1000 ml IV at 1000 ml once; to be given as a bolus over 60 minutes kj2 Route: IV; Rate: 1000 ml; Site: right antecubital; 07:56 Follow up: Response: No adverse reaction; IV Status: Completed infusion; IV Intake: ph 1000ml 06:56 Not Given (Patient Refused): ondansetron 4 mg IVP once; over 2 minutes kj2 06:56 Drug: Famotidine PO 20 mg PO once Route: PO; kj2 07:35 Follow up: Response: No adverse reaction kj2 06:56 Drug: Alum-Mag Hydroxide-Simeth PO Suspension (200 mg-200 mg-20 mg/5 mL) 30 ml PO once kj2 Route: PO; 07:35 Follow up: Response: No adverse reaction kj2 06:56 Drug: Dicyclomine PO 20 mg PO once Route: PO; kj2 07:35 Follow up: Response: No adverse reaction kj2 Disposition: 20:05 Chart complete. sp4 Disposition Summary: 06/04/24 07:39 Discharge Ordered Notes: Location: Home sp4 Problem: new sp4 Symptoms: have improved sp4 Condition: Stable sp4 Diagnosis - Acute viral gastroenteritis , Acute Persistent Diarrhea sp4 Followup: sp4 - With: Private Physician - When: 7 - 10 days - Reason: Recheck today's complaints Discharge Instructions: - Discharge Summary Sheet sp4 - Viral Gastroenteritis, Adult, [id number]-wd-[id number] sp4 Forms: - Patient Portal Instructions sp4 Prescriptions: - Lomotil 2.5-0.025 mg Oral tablet - take 1 tablet ORAL route every 6 hours As needed PRN diarreha; 30 tablet; sp4 Refills: 0, Product Selection Permitted Signatures: [facility]patcher [facility] Rosita Solitario RN RN ha1 Elia Guallpa MD MD sp4 Leesa Aldana RN RN kj2 Brandy Ruelas RN ph
[2024-06-04 09:29] VITALS: TEMP 97.6
[2024-06-04 09:34] VITALS: BP 124/84; O2SAT 100
== END 2024-06-04 07:56 | disposition home or self-care (01) ==
LOC: ER 05:33
DX: A08.4 Viral intestinal infection, unspecified (principal); F17.210 Nicotine dependence, cigarettes, uncomplicated
CPT/HCPCS: 85025; 36415; 83690; 80053; 87804 ×2; 74022; 96360; 99284; J7030; J2405

== ENCOUNTER 2025-03-20 08:20 | Emergency (ER) | payer OTHER ==
--- OUTSIDE RECORDS SUMMARY | 2025-03-20 08:23 | XMS REPORT | Continuity of Care Document ---
Author Name Unknown Address [address] [facility] [address] [place] [address] [facility] Address [address] [facility] [place] [address] Care Team Providers Care Cpa Tax Name Role Phone Unavailable Unavailable Unavailable Encounters Start Date/Time End Date/Time Encounter Type Admission Type Attending Clinicians Care Facility Care Department Encounter ID Source 2023-05-29 10:15:00 Outpatient [facility] [id number] [facility] 2021-10-02 13:34:03 Outpatient [facility] [id number] [facility]
[2025-03-20 08:50] LABS: Absolute Lymphocytes (CBC) 1.4 K/uL (0.7-4.9); Hematocrit 43.3 % (39.6-49.0); Hemoglobin 15.0 g/dL (13.6-17.9); MCH 28.6 pg (27.0-35.0); MCHC 34.5 g/dL (32.0-36.0); MCV 83.0 fL (80-100); MPV 8.8 fL (7.6-11.3); Nucleated RBC Absolute Count 0.0 (0-0); Nucleated Red Blood Cells % 0.3 % (0-0); RBC Red Blood Cell Count 5.22 M/uL (4.33-5.43); White Blood Count 5.90 thou/uL (4.3-10.9)
[2025-03-20 08:56] LABS: Sqamous Epithelial None Seen /HPF (None Seen); Urine Culture Reflex Order NOT NEEDED; Urine Microscopic Reflex YN ORDER UMIC; Urine Yeast (Budding) Trace /HPF (None Seen)
[2025-03-20 09:10] LABS: ALT/SGPT 50.0 U/L (16-61); Albumin 3.6 g/dL (3.4-5.0); Albumin/Globulin Ratio 0.9 (1.1-1.8); Alkaline Phosphatase 88.0 U/L (45-117); Anion Gap 9.6 mEq/L (5.0-15.0); BUN Blood Urea Nitrogen 12.0 mg/dL (7-18); Globulin 4.1 g/dL (2.3-3.5); Glucose Level 114.0 mg/dL (74-106); Lipase 24.0 U/L (13-75)
[2025-03-20 09:11] LABS: AST/SGOT 24.0 U/L (15-37); Potassium 3.6 mEq/L (3.5-5.1)
[2025-03-20] MEDS ORDERED: ONDANSETRON 4 MG/2 ML VIAL ONE (09:14)
[2025-03-20] MEDS ORDERED: NA CHLORIDE 0.9% 1,000 ML ONE (09:15)
[2025-03-20 09:57] LABS: Influenza A Ag Negative; Influenza B Ag Negative; SARS-CoV-2 Antigen Rapid Res Negative (Negative)
--- NOTE | 2025-03-20 09:59 | EDPHYS ---
Physician Documentation [facility] Name: Lencho Kirby Age: 24 yrs Sex: Male : 2000 Arrival Date: 03/20/2025 Time: 08:20 Bed 10 Private MD: ED Physician Antione Willoughby HPI: 03/20 08:29 This 24 yrs old Male presents to ER via Unassigned with complaints of Abdominal Pain, kb Nausea. 08:29 Patient is a 24-year-old male who presents for nausea, abdominal pain, diarrhea and kb chills that started 5 days ago. Reports symptoms have been intermittent but have persisted. States he has not checked his temperature. 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 Historical: - Allergies: 08:31 Codeine; ss - Home Meds: 08:31 None [Active]; ss - PMHx: 08:31 None; ss - PSHx: 08:31 None; ss - Infectious Disease History:: Denies. - Social history:: Smoking status: Reported history of juuling and/or vaping. ROS: 08:29 Constitutional: As per HPI kb Exam: 08:29 Constitutional: This is a well developed, well nourished patient who is awake, alert, kb and in no acute distress. Head/Face: Normocephalic, atraumatic. ENT: Moist Mucous membranes Cardiovascular: Regular rate Respiratory: Respirations even and unlabored. No increased work of breathing. Talking in full sentences Abdomen/GI: Soft, non-tender. No distention Skin: Warm, dry with normal turgor. Normal color. MS/ Extremity: Pulses equal, no cyanosis. Neurovascular intact. Full, normal range of motion. Neuro: Awake and alert, GCS 15, oriented to person, place, time, and situation. Vital Signs: 08:30 BP 145 / 86; Pulse 87; Resp 14; Temp 97.6(TE); Pulse Ox 99% on R/A; Weight 104.33 kg; ss Height 6 ft. 0 in. ; Pain 310; 08:30 Body Mass Index 31.19 (104.33 kg, 182.88 cm) 08:30 Pain Scale: Adult ss MDM: 08:23 Medical Screening Exam initiated kb 09:58 Differential diagnosis: non-specific abd pain, pancreatitis, viral infection, covid, kb flu, dehydration, abnormal electrolytes. Data reviewed: vital signs, nurses notes. I considered the following discharge prescriptions or medication management in the emergency department I discussed and recommended Over The Counter medications, Antibiotics: At this time antibiotics are not recommended. Test considered but Not performed: CT: CT abdomen pelvis considered but patient has no abdominal tenderness on exam. Historians other than the Patient: Parent: mother. Counseling: I had a detailed discussion with the patient and/or guardian regarding the historical points, exam findings, and any diagnostic results supporting the discharge/admit diagnosis, lab results, the need for outpatient follow up, a family practitioner, to return to the emergency department if symptoms worsen or persist or if there are any questions or concerns that arise at home. 03/20 08:30 Order name: CBC with Diff; Complete Time: 08:58 kb 03/20 08:30 Order name: CMP; Complete Time: 09:13 kb 03/20 08:30 Order name: Lipase; Complete Time: 09:13 kb 03/20 08:30 Order name: CPK; Complete Time: 09:13 kb 03/20 08:30 Order name: UA Rfx Jae Cult if indicated; Complete Time: 08:58 kb 03/20 09:25 Order name: COVID-19 Ag + Flu A+B Ag; Complete Time: 09:58 kb 03/20 08:30 Order name: IV Saline Lock; Complete Time: 08:47 kb 03/20 08:30 Order name: Labs collected and sent; Complete Time: 08:47 kb Administered Medications: 09:28 Drug: Ondansetron IVP 4 mg IVP once; over 2 minutes Route: IVP; Site: right antecubital;ss 10:19 Follow up: Response: No adverse reaction ss 09:28 Drug: NS 0.9% IV 1000 ml IV at 1 bolus Per protocol; to be given as a bolus over 60 ss minutes Route: IV; Rate: 1 bolus; Site: right antecubital; 10:18 Follow up: IV Status: Completed infusion ss 10:19 Follow up: IV Intake: 1000ml ss Disposition: 17:10 Co-signature as Attending Physician, Antione Willoughby MD I reviewed the patient's care rn provided by the Advanced Practice Provider and agree with the diagnosis and treatment plan. Disposition Summary: 09/22/25 09:59 Discharge Ordered Notes: Location: Home kb Condition: Stable kb Diagnosis - Nausea kb - Viral infection, unspecified kb Followup: kb - With: Emergency Department - When: As needed - Reason: Worsening of condition Followup: kb - With: Private Physician - When: 2 - 3 days - Reason: Recheck today's complaints, Continuance of care, Re-evaluation by your physician Discharge Instructions: - Discharge Summary Sheet kb - Nausea, Adult, Rjtu-eu-[id number] kb - Viral Illness, Adult kb Forms: - Medication Reconciliation Form kb - Antibiotic Education kb - Prescription Opioid Use kb - Patient Portal Instructions kb - Leadership Thank You Letter kb Prescriptions: - Zofran 4 mg Oral tablet - take 1 tablet ORAL route every 6 hours As needed; 12 tablet; Refills: 0, kb Product Selection Permitted Signatures: Dispatcher [employer] EDMS Danyelle Phoenix, PROGRAM ASSISTANT-C PROGRAM ASSISTANT-Antione Swanson MD MD rn Blanchard, Shelby, RN RN ss Corrections: (The following items were deleted from the chart) 08:30 08:30 CBC+H.LAB.BRZ ordered. EDMS EDMS 08:30 08:30 COMPREHENSIVE METABOLIC PANEL+C.LAB.BRZ ordered. EDMS EDMS 08:30 08:30 LIPASE+C.LAB.BRZ ordered. EDMS EDMS 08:30 08:30 CREATINE PHOSPHOKINASE+C.LAB.BRZ ordered. EDMS EDMS 08:30 08:30 UA Rfx Jae Cult if indicated+U.LAB.BRZ ordered. EDMS EDMS
--- NOTE | 2025-03-20 09:59 | ER ---
Nurse's Notes [facility] Name: Lencho Kirby Age: 24 yrs Sex: Male : 2000 Arrival Date: 03/20/2025 Time: 08:20 Bed 10 Private MD: Diagnosis: Nausea;Viral infection, unspecified Presentation: 03/20 08:30 Chief complaint: Patient states: intermittent abd pain, chills and nausea that began ss afternoon. Coronavirus screen: Client denies travel out of the [place] in the last 14 days. Ebola Screen: Patient denies exposure to infectious person. Patient denies travel to an Ebola-affected area in the 21 days before illness onset. Initial Sepsis Screen: Does the patient meet any 2 criteria? No. Patient's initial sepsis screen is negative. Does the patient have a suspected source of infection? No. Patient's initial sepsis screen is negative. Risk Assessment: Do you want to hurt yourself or someone else? Patient reports no desire to harm self or others. Onset of symptoms was March 16, 2025. 08:30 Method Of Arrival: Ambulatory 08:30 Acuity: KING 3 ss Historical: - Allergies: 08:31 Codeine; ss - Home Meds: 08:31 None [Active]; ss - PMHx: 08:31 None; ss - PSHx: 08:31 None; ss - Infectious Disease History:: Denies. - Social history:: Smoking status: Reported history of juuling and/or vaping. Assessment: 10:18 Reassessment: Patient appears in no apparent distress at this time. Patient and/or ss family updated on plan of care and expected duration. Pain level reassessed. Patient is alert, oriented x 3, equal unlabored respirations, skin warm/dry/pink. Patient states feeling better. Patient states symptoms have improved. Vital Signs: 08:30 BP 145 / 86; Pulse 87; Resp 14; Temp 97.6(TE); Pulse Ox 99% on R/A; Weight 104.33 kg; ss Height 6 ft. 0 in. ; Pain 3/10; 08:30 Body Mass Index 31.19 (104.33 kg, 182.88 cm) 08:30 Pain Scale: Adult ED Course: 08: Patient arrived in ED. al6 08:23 Danyelle Phoenix FNP-C [facility]. kb 08:23 Antione Willoughby MD is Attending Physician. kb 08:31 Triage completed. ss 08:31 Arm band placed on right wrist. ss 08:47 UA Rfx Jae Cult if indicated Sent. bc6 08:47 CPK Sent. bc6 08:47 CBC with Diff Sent. bc6 08:47 CMP Sent. bc6 08:47 Lipase Sent. bc6 08:47 Initial lab(s) drawn, by id, sent to lab. Urine collected: clean catch specimen, tennille bc6 colored. Inserted saline lock: 20 gauge in right antecubital area, using aseptic technique. Blood collected. Flushed with 10 mL NS. 09:27 Steph Zamora, RN is Primary Nurse. ss 10:18 No provider procedures requiring assistance completed. Patient did not have IV access ss during this emergency room visit. Administered Medications: 09:28 Drug: Ondansetron IVP 4 mg IVP once; over 2 minutes Route: IVP; Site: right antecubital;ss 10:19 Follow up: Response: No adverse reaction ss 09:28 Drug: NS 0.9% IV 1000 ml IV at 1 bolus Per protocol; to be given as a bolus over 60 ss minutes Route: IV; Rate: 1 bolus; Site: right antecubital; 10:18 Follow up: IV Status: Completed infusion ss 10:19 Follow up: IV Intake: 1000ml ss Intake: 10:19 IV: 1000ml; Total: 1000ml. ss Outcome: 09:59 Discharge ordered by . kb 10:18 Discharged to home ambulatory, ss 10:18 Condition: good 10:18 Discharge instructions given to patient, family, Instructed on discharge instructions, follow up and referral plans. medication usage, Demonstrated understanding of instructions, follow-up care, medications, Prescriptions given X 1, 10:19 Patient left the ED. ss Signatures: Danyelle Phoenix FNP-C PUTTER IN-Ckb Steph Zamora, RN RN Quiana Byrd 6 Ariane Martinez al6
[2025-03-20 11:17] VITALS: BP 145/86; TEMP 97.6; O2SAT 99
== END 2025-03-20 10:19 | disposition home or self-care (01) ==
LOC: ER 08:20
DX: B34.9 Viral infection, unspecified (principal); Z11.52 Encounter for screening for COVID-19
CPT/HCPCS: 96361; 85025; 81001; 36415; 82550; 83690; 80053; 96374; 99284; 87428; J2405; J7030

== ENCOUNTER 2025-03-24 10:20 | Emergency (ER) | payer OTHER ==
--- OUTSIDE RECORDS SUMMARY | 2025-03-24 10:24 | XMS REPORT | Continuity of Care Document ---
Author Name Unknown Address [address] [facility] [place] [address] [facility] Address [address] [facility] [address] [place] [address] Care Team Providers Care Horticulture Superintendent Name Role Phone Unavailable Unavailable Unavailable Encounters Start Date/Time End Date/Time Encounter Type Admission Type Attending Clinicians Care Facility Care Department Encounter ID Source 2023-05-29 10:15:00 Outpatient [facility] [id number] [facility] 2021-10-02 13:34:03 Outpatient [facility] [id number] [facility]
[2025-03-24] MEDS ORDERED: NA CHLORIDE 0.9% 1,000 ML ONE (11:08)
[2025-03-24 11:32] LABS: Absolute Lymphocytes (CBC) 1.9 K/uL (0.7-4.9); Hematocrit 46.0 % (39.6-49.0); Hemoglobin 15.8 g/dL (13.6-17.9); MCH 28.7 pg (27.0-35.0); MCHC 34.4 g/dL (32.0-36.0); MCV 83.6 fL (80-100); MPV 8.9 fL (7.6-11.3); Nucleated RBC Absolute Count 0.0 (0-0); Nucleated Red Blood Cells % 0.1 % (0-0); RBC Red Blood Cell Count 5.51 M/uL (4.33-5.43); White Blood Count 6.90 thou/uL (4.3-10.9)
[2025-03-24] MEDS ORDERED: ONDANSETRON 4 MG/2 ML VIAL ONE (11:40)
--- NOTE | 2025-03-24 12:11 | RAD REPORT ---
EXAMINATION: CT ABDOMEN AND PELVIS WITH CONTRAST CLINICAL INDICATION: ABD PAIN TECHNIQUE: CT abdomen and pelvis was performed, after the administration of IV contrast, as per [facility] protocol. Axial, sagittal and coronal reconstructions were obtained. One or more of the following dose reduction techniques were used: Automated exposure control, adjustment of the mA and k V according to patient size, and iterative reconstruction. Unless otherwise specified, incidental findings do not require dedicated imaging follow-up. COMPARISON: 05/30/2024 FINDINGS: LOWER CHEST: The visualized lung bases are clear. LIVER: Normal in size and contour. No focal lesion. Grossly unremarkable gallbladder. SPLEEN: Normal size. No focal lesion. PANCREAS: No mass, ductal dilation, or monty-pancreatic fluid. ADRENALS: Normal; no mass. KIDNEYS: Normal size and contour. No hydronephrosis. GASTROINTESTINAL TRACT: No evidence of free air, significant intra-abdominal free fluid, bowel obstru ction or abscess. Mild sigmoid diverticulosis coli without diverticulitis. APPENDIX: Normal appendix. LYMPH NODES: No lymphadenopathy. MUSCULOSKELETAL: Prominent posterior disc bulging lower lumbar spine. ADDITIONAL FINDINGS: Small fat-containing umbilical hernia. IMPRESSION: No acute abnormalities seen in the abdomen or pelvis.
[2025-03-24 12:27] LABS: ALT/SGPT 37.0 U/L (16-61); AST/SGOT 23.0 U/L (15-37); Albumin 3.7 g/dL (3.4-5.0); Albumin/Globulin Ratio 0.9 (1.1-1.8); Alkaline Phosphatase 90.0 U/L (45-117); Anion Gap 11.8 mEq/L (5.0-15.0); BUN Blood Urea Nitrogen 11.0 mg/dL (7-18); Globulin 4.2 g/dL (2.3-3.5); Glucose Level 118.0 mg/dL (74-106); Lipase 16.0 U/L (13-75); Potassium 3.8 mEq/L (3.5-5.1)
[2025-03-24 13:54] LABS: Urine Microscopic Reflex YN NO UMIC
--- NOTE | 2025-03-24 14:03 | ER ---
Nurse's Notes [facility] Name: Lencho Kirby Age: 24 yrs Sex: Male : 2000 Arrival Date: 03/24/2025 Time: 10:20 Bed 11 Private MD: Diagnosis: Nausea;Diarrhea, unspecified;Upper abdominal pain, unspecified Presentation: 03/24 10:35 Chief complaint: Patient states: LEFT UPPER ABD PAIN X 1 WEEK WITH DIZZINESS, NAUSEA. db SEEN RECENTLY AND STILL HAS SAME SYMPTOMS WAS TOLD IT IS "HEAT RELATED". Coronavirus screen: Client denies travel out of the [place] in the last 14 days. At this time, the client does not indicate any symptoms associated with coronavirus-19. Ebola Screen: Patient negative for fever greater than or equal to 101.5 degrees Fahrenheit, and additional compatible Ebola Virus Disease symptoms Patient denies exposure to infectious person. Patient denies travel to an Ebola-affected area in the 21 days before illness onset. No symptoms or risks identified at this time. Initial Sepsis Screen: Does the patient meet any 2 criteria? No. Patient's initial sepsis screen is negative. Does the patient have a suspected source of infection? No. Patient's initial sepsis screen is negative. Risk Assessment: Do you want to hurt yourself or someone else? Patient reports no desire to harm self or others. Onset of symptoms was March 24, 2025. 10:35 Method Of Arrival: Ambulatory db 10:35 Acuity: KING 3 db Triage Assessment: 10:36 General: Appears in no apparent distress. comfortable, Behavior is calm, cooperative. db Pain: Complains of pain in abdomen. Neuro: Level of Consciousness is awake, alert, obeys commands, Oriented to person, place, time, situation, Reports dizziness. Respiratory: Airway is patent Respiratory effort is even, unlabored, Respiratory pattern is regular, symmetrical. GI: Reports nausea. 10:36 GI: Reports upper abdominal pain. db Historical: - Allergies: 10:36 Codeine; db - PMHx: 10:36 None; db - Immunization history:: Adult Immunizations unknown. - Infectious Disease History:: Denies. - Social history:: Smoking status: Reported history of juuling and/or vaping. Patient uses street drugs, marijuana. Screenin:50 [facility] ED Fall Risk Assessment (Adult) History of falling in the last 3 months, rg5 including since admission No falls in past 3 months (0 pts) Confusion or Disorientation No (0 pts) Intoxicated or Sedated No (0 pts) Impaired Gait No (0 pts) Mobility Assist Device Used No (0 pt) Altered Elimination No (0 pt) Score/Fall Risk Level 0 - 2 = Low Risk Oriented to surroundings, Maintained a safe environment. Abuse screen: Denies threats or abuse. Nutritional screening: No deficits noted. Tuberculosis screening: No symptoms or risk factors identified. Assessment: 13:50 General: Appears in no apparent distress. comfortable, Behavior is calm, cooperative, rg5 appropriate for age. Pain: Denies pain. Neuro: Level of Consciousness is awake, alert, obeys commands, Oriented to person, place, time, situation, Reports dizziness. GI: Abdomen is round non-distended, Reports diarrhea, nausea, vomiting. : No signs and/or symptoms were reported regarding the genitourinary system. EENT: No signs and/or symptoms were reported regarding the EENT system. Derm: Skin is intact, Skin is dry, Skin is normal. Musculoskeletal: Circulation, motion, and sensation intact. Range of motion: intact in all extremities. Vital Signs: 10:35 BP 154 / 92; Pulse 75; Resp 16; Temp 98.4(O); Pulse Ox 96% ; Weight 106.59 kg; Height 6 db ft. 0 in. ; 13:49 BP 146 / 98; Pulse 67; Resp 18; Pulse Ox 99% ; Pain 0/10; rg5 10:35 Body Mass Index 31.87 (106.59 kg, 182.88 cm) db 13:49 Pain Scale: Adult rg5 ED Course: 10:23 Patient arrived in ED. al6 10:25 Anusha Woodruff PA-C is PHCP. sb4 10:25 Lencho Abraham MD is Attending Physician. sb4 10:36 Triage completed. db 10:37 Arm band placed on Patient placed in an exam room. db 11:25 Initial lab(s) drawn, by me, sent to lab. Inserted saline lock: 20 gauge in right rk3 antecubital area, using aseptic technique. Blood collected. Flushed with 10 mL NS. 11:39 Emperatriz Villarreal, RN is Primary Nurse. iw 11:47 CT Abd/Pelvis - IV Contrast Only In Process Unspecified. EDMS 13:50 Patient has correct armband on for positive identification. Bed in low position. Call rg5 light in reach. Side rails up X 1. Door closed. Noise minimized. 13:50 No provider procedures requiring assistance completed. rg5 14:03 Dominic Paz MD is Referral Physician. sb4 14:28 IV discontinued, bleeding controlled, No redness/swelling at site. Pressure dressing rg5 applied. Administered Medications: 11:26 Drug: NS 0.9% IV 1000 ml IV at 1 bolus Per protocol; to be given as a bolus over 60 db minutes Route: IV; Rate: 1 bolus; Site: right antecubital; 12:30 Follow up: IV Status: Completed infusion; IV Intake: 1000ml rg5 11:50 Drug: Ondansetron IVP 4 mg IVP once; over 2 minutes Route: IVP; Site: right antecubital;db 13:22 Follow up: Response: No adverse reaction rg5 Medication: 13:50 VIS not applicable for this client. rg5 Intake: 12:30 IV: 1000ml; Total: 1000ml. rg5 Outcome: 14:03 Discharge ordered by . sb4 14:27 Discharged to home ambulatory, rg5 14:27 Condition: stable 14:27 Discharge instructions given to patient, Instructed on discharge instructions, follow up and referral plans. Demonstrated understanding of instructions, follow-up care, medications, Prescriptions given X 2, 14:28 Patient left the ED. rg5 Signatures: Dispatcher [employer] EDKS Emperatriz Villarreal RN RN iw Benton, Danielle RN RN Anusha Eid PAAmy PA-C sb4 Christiano Machado RN RN rg5 Ariane Martinez al6 Stephanie Lu rk3
--- NOTE | 2025-03-24 14:03 | EDPHYS ---
Physician Documentation [facility] Name: Lencho Kirby Age: 24 yrs Sex: Male : 2000 Arrival Date: 03/24/2025 Time: 10:20 Bed 11 Private MD: ED Physician Lencho Abraham HPI: 03/24 14:38 This 24 yrs old Male presents to ER via Ambulatory with complaints of sb4 Nausea/Vomiting/Diarrhea, Dizziness. 14:38 Patient reports nausea, diarrhea, and abdominal cramping over the past week. States he sb4 was seen here about 4 days ago, had labs done, was told it was probably a virus or heat related. He was prescribed Zofran which she states he has not been taking. States that he has been taking omeprazole and Pepcid. States that his symptoms have not improved and he was unable to get into his primary care. Denies any vomiting, just feels nauseated and like he cannot eat. Historical: - Allergies: 10:36 Codeine; db - PMHx: 10:36 None; db - Immunization history:: Adult Immunizations unknown. - Infectious Disease History:: Denies. - Social history:: Smoking status: Reported history of juuling and/or vaping. Patient uses street drugs, marijuana. ROS: 14:38 Constitutional: Negative for fever, chills, and weight loss, sb4 14:38 Abdomen/GI: Positive for abdominal pain, nausea, diarrhea, 14:38 All other systems are negative, Exam: 14:38 Constitutional: This is a well developed, well nourished patient who is awake, alert, sb4 and in no acute distress. Head/Face: Normocephalic, atraumatic. Eyes: Extra-ocular motions intact. Periorbital areas with no swelling, redness, or edema. ENT: Mucous membranes moist. Cardiovascular: Regular rate and rhythm with a normal S1 and S2. Respiratory: No increased work of breathing, no retractions or nasal flaring. Abdomen/GI: Soft, non-tender, no distension. Skin: Warm, dry with normal turgor. Normal color with no rashes, no lesions, and no evidence of cellulitis. Vital Signs: 10:35 BP 154 / 92; Pulse 75; Resp 16; Temp 98.4(O); Pulse Ox 96% ; Weight 106.59 kg; Height 6 db ft. 0 in. ; 13:49 BP 146 / 98; Pulse 67; Resp 18; Pulse Ox 99% ; Pain 0/10; rg5 10:35 Body Mass Index 31.87 (106.59 kg, 182.88 cm) db 13:49 Pain Scale: Adult rg5 MDM: 10:34 Medical Screening Exam initiated sb4 14:38 Differential diagnosis: Nonspecific abd pain, gastritis, gastroenteritis, colitis, sb4 GERD, PUD. Data reviewed: vital signs, nurses notes, lab test result(s), radiologic studies, and as a result, I will discharge patient. 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 Special discussion: Based on the patient's Hx, exam, and Dx evaluation, there is no indication for emergent surgery or inpatient Tx. It is understood by the patient/guardian that if the Sx's persist or worsen they need to return immediately for re-evaluation. Based on the presenting symptoms and work-up in the emergency department, I discussed in detail the need to arrange with the PCP or specialist an outpatient procedure, esophagogastroduodenoscopy by the GI specialist, colonoscopy by the GI specialist. 03/24 11:11 Order name: CBC with Diff; Complete Time: 11:38 sb4 03/24 11:11 Order name: CMP; Complete Time: 12:36 sb4 03/24 11:11 Order name: Lipase; Complete Time: 12:36 sb4 03/24 11:20 Order name: UA Rfx Jae Cult if indicated; Complete Time: 14:00 sb4 03/24 11:11 Order name: CT Abd/Pelvis - IV Contrast Only; Complete Time: 12:13 sb4 03/24 11:11 Order name: IV Saline Lock; Complete Time: 11:25 sb4 03/24 11:11 Order name: Labs collected and sent; Complete Time: 11:25 sb4 03/24 12:39 Order name: PO challenge; Complete Time: 13:22 sb4 Administered Medications: :26 Drug: NS 0.9% IV 1000 ml IV at 1 bolus Per protocol; to be given as a bolus over 60 db minutes Route: IV; Rate: 1 bolus; Site: right antecubital; 12:30 Follow up: IV Status: Completed infusion; IV Intake: 1000ml rg5 11:50 Drug: Ondansetron IVP 4 mg IVP once; over 2 minutes Route: IVP; Site: right antecubital;db 13:22 Follow up: Response: No adverse reaction rg5 Disposition Summary: 03/24/25 14:03 Discharge Ordered Notes: Location: Home sb4 Problem: an ongoing problem sb4 Symptoms: are unchanged sb4 Condition: Stable sb4 Diagnosis - Nausea sb4 - Diarrhea, unspecified sb4 - Upper abdominal pain, unspecified sb4 Followup: sb4 - With: Dominic Paz MD - When: As needed - Reason: Further diagnostic work-up, Recheck today's complaints, Re-evaluation by your physician Discharge Instructions: - Discharge Summary Sheet sb4 - Abdominal Pain, Adult sb4 - Food Choices to Help Relieve Diarrhea, Adult sb4 Forms: - Patient Portal Instructions sb4 - Leadership Thank You Letter sb4 - Work release form rg5 Prescriptions: - Protonix 40 mg Oral Tablet - take 1 tablet ORAL route once daily; 30 tablet; Refills: 0, Product Selection sb4 Permitted - dicyclomine 20 mg Oral tablet - take 1 tablet ORAL route 4 times per day PRN abdominal pain/cramps; 20 tablet; sb4 Refills: 0, Product Selection Permitted Signatures: Dispatcher [employer] EDMarline Lance, RN RN Anusha Eid PAAmy PAAmy sb4 Christiano Machado RN rg5 Corrections: (The following items were deleted from the chart) 11:12 11:12 CBC+H.LAB.BRZ ordered. EDMS EDMS 11:12 11:12 COMPREHENSIVE METABOLIC PANEL+C.LAB.BRZ ordered. EDMS EDMS 11:12 11:12 LIPASE+C.LAB.BRZ ordered. EDMS EDMS 11:12 11:12 Abdomen Pelvis W Con+CT.RAD.BRZ ordered. EDMS EDMS
[2025-03-24 14:48] VITALS: TEMP 98.4
[2025-03-24 14:50] VITALS: BP 146/98; O2SAT 99
== END 2025-03-24 14:28 | disposition home or self-care (01) ==
LOC: ER 10:20
DX: R11.0 Nausea (principal); R19.7 Diarrhea, unspecified; R10.10 Upper abdominal pain, unspecified
CPT/HCPCS: 96361; 85025; 36415; 81003; 83690; 80053; 74177; 96374; 99284; Q9967; J2405; J7030

== ENCOUNTER 2025-03-30 08:31 | Emergency (ER) | payer OTHER ==
--- OUTSIDE RECORDS SUMMARY | 2025-03-30 08:45 | XMS REPORT | Continuity of Care Document ---
Author Name Unknown Address [address] [place] [address] [facility] Address 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
[2025-03-30 11:03] LABS: Absolute Lymphocytes (CBC) 1.7 K/uL (0.7-4.9); Hematocrit 49.2 % (39.6-49.0); Hemoglobin 17.0 g/dL (13.6-17.9); MCH 29.0 pg (27.0-35.0); MCHC 34.6 g/dL (32.0-36.0); MCV 83.9 fL (80-100); MPV 9.7 fL (7.6-11.3); Nucleated RBC Absolute Count 0.0 (0-0); Nucleated Red Blood Cells % 0.1 % (0-0); RBC Red Blood Cell Count 5.87 M/uL (4.33-5.43); White Blood Count 6.40 thou/uL (4.3-10.9)
[2025-03-30 11:14] LABS: ALT/SGPT 39.0 U/L (16-61); AST/SGOT 16.0 U/L (15-37); Albumin 4.1 g/dL (3.4-5.0); Albumin/Globulin Ratio 0.8 (1.1-1.8); Alkaline Phosphatase 101.0 U/L (45-117); Anion Gap 9.9 mEq/L (5.0-15.0); BUN Blood Urea Nitrogen 9.0 mg/dL (7-18); Globulin 4.9 g/dL (2.3-3.5); Glucose Level 96.0 mg/dL (74-106); Lipase 19.0 U/L (13-75); Potassium 3.9 mEq/L (3.5-5.1)
--- NOTE | 2025-03-30 11:40 | EDPHYS ---
Physician Documentation [facility] Name: Lencho Kirby Age: 24 yrs Sex: Male : 2000 Arrival Date: 03/30/2025 Time: 08:31 Bed 15 Private MD: ED Physician Antione Willoughby HPI: 03/30 09:20 This 24 yrs old Male presents to ER via Ambulatory with complaints of Abdominal Pain, rn Vomiting. 09:20 Patient reports episodic left upper quadrant abdominal pain with vomiting and diarrhea rn for 2 weeks now. Seen here twice with negative workups and saw GI recently. Patient reports just saw GI and told to continue antacid medication and diagnosed with mild gastritis but no ulcers. Has follow-up appointment with GI in 6 days and they are going to discuss possible colonoscopy or further testing. GI sent parasitic testing as well. Patient reports currently does not have abdominal pain and feels fine, states "could go to work". Patient does smoke marijuana daily.. Historical: - Allergies: 09:05 Codeine; bp - Immunization history:: Adult Immunizations up to date. - Infectious Disease History:: Denies. - Social history:: Smoking status: unknown. - Family history:: not pertinent. - Hospitalizations: : No recent hospitalization is reported. ROS: 09:20 Constitutional: Negative for fever, chills, and weight loss, Cardiovascular: Negative rn for chest pain, palpitations, and edema, Respiratory: Negative for shortness of breath, cough, wheezing, and pleuritic chest pain, Abdomen/GI: Positive for abdominal pain with vomiting, none currently. MS/Extremity: Negative for injury and deformity, Neuro: Negative for headache, weakness, numbness, tingling, and seizure, Exam: 09:20 Constitutional: This is a well developed, well nourished patient who is awake, alert, rn and in no acute distress. Cardiovascular: Regular rate and rhythm. No pulse deficits. Respiratory: No increased work of breathing, no retractions or nasal flaring. Abdomen/GI: Soft, nontender, no peritoneal signs. No distention. MS/ Extremity: Pulses equal, no cyanosis. Neurovascular intact. Full, normal range of motion. Equal circumference. Neuro: Awake and alert, GCS 15, oriented to person, place, time, and situation. Cranial nerves II-XII grossly intact. Motor strength 5/5 in all extremities. Sensory grossly intact. Cerebellar exam normal. Normal gait. Vital Signs: 09:03 BP 144 / 78; Pulse 67; Resp 16; Temp 98; Pulse Ox 100% ; bp 11:37 BP 132 / 82; Pulse 64; Resp 16; Pulse Ox 98% on R/A; dd2 11:56 BP 135 / 71; Pulse 67; Resp 17; Pulse Ox 99% on R/A; dd2 [place] Coma Score: 11:24 Eye Response: spontaneous(4). Motor Response: obeys commands(6). Verbal Response: dd2 oriented(5). Total: 15. MDM: 08:35 Medical Screening Exam initiated rn 11:37 Differential diagnosis: Nonspecific abd pain, gastritis, pancreatitis, viral rn gastroenteritis, gastroenteritis. Data reviewed: vital signs, nurses notes, lab test result(s), and as a result, I will discharge patient. Counseling: I had a detailed discussion with the patient and/or guardian regarding the historical points, exam findings, and any diagnostic results supporting the discharge/admit diagnosis, lab results, the need for outpatient follow up, to return to the emergency department if symptoms worsen or persist or if there are any questions or concerns that arise at home. Response to treatment: the patient's symptoms have resolved after treatment, the patient's condition has returned to base line, the patient is now symptom free, and as a result, I will discharge patient. Special discussion: I discussed with the patient/guardian in detail that at this point there is no indication for admission to the hospital. It is understood, however, that if the symptoms persist or worsen the patient needs to return immediately for re-evaluation. Based on the history and exam findings, there is no indication for further emergent testing or inpatient evaluation. 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 I discussed with the patient/guardian the need to see the primary care provider for further evaluation of the symptoms. ED course: No acute findings and blood work to suggest need for emergent repeat CT imaging. Patient was just seen a few days ago with negative CT imaging. Patient has follow-up with GI in 6 days. Patient still pain-free and symptom-free throughout ER visit. I have personally reviewed all of the results, including but not limited to blood tests and imaging deemed necessary to safely discharge this patient at this time. All results given to and printed out for patient. I personally went over all the results with the patient and answered all questions. Patient will follow-up with PCP and or specialist as discussed. Return precautions given and understood.. 11:37 ED course: Recommend dietary changes, continuation of Protonix and complete cessation rn of marijuana. 03/30 08:37 Order name: CBC with Diff; Complete Time: 11: rn 03/30 08:37 Order name: CMP; Complete Time: : rn 03/30 08:37 Order name: Lipase; Complete Time: : rn 03/30 08:37 Order name: IV Saline Lock; Complete Time: :57 rn 03/30 08:37 Order name: Labs collected and sent; Complete Time: :57 rn Administered Medications: No medications were administered Disposition Summary: 03/30/25 11:39 Discharge Ordered Notes: Location: Home rn Problem: new rn Symptoms: have improved rn Condition: Stable rn Diagnosis - Abdominal pain, unspecified rn Followup: rn - With: Private Physician - When: As needed - Reason: Recheck today's complaints, Re-evaluation by your physician Discharge Instructions: - Discharge Summary Sheet rn - Abdominal Pain, Adult rn Forms: - Medication Reconciliation Form rn - Antibiotic internal control specialist - Prescription Opioid Use rn - Patient Portal Instructions rn - Leadership Thank You Letter rn - Work release form dd2 Signatures: Dispatcher [employer] Antione Craven MD MD rn Peltier, Brian, RN RN bp Corrections: (The following items were deleted from the chart) 09:22 09:20 Patient reports episodic abdominal pain with vomiting and diarrhea for 2 weeks rn now. Seen here twice with negative workups and saw GI recently. Patient reports just saw GI and told to continue antacid medication and diagnosed with mild gastritis but no ulcers. Has follow-up appointment with GI in 6 days and they are going to discuss possible colonoscopy or further testing. GI sent parasitic testing as well. Patient reports currently does not have abdominal pain and feels fine, states "could go to work". Patient does smoke marijuana daily.. rn
--- NOTE | 2025-03-30 11:40 | ER ---
Nurse's Notes [facility] Name: Lencho Kirby Age: 24 yrs Sex: Male : 2000 Arrival Date: 03/30/2025 Time: 08:31 Bed 15 Private MD: Diagnosis: Abdominal pain, unspecified Presentation: 03/30 09:03 Chief complaint: Patient states: N/V/D x2 WK, SEEN FOR SAME MX TIMES. NEGATIVE bp ENDOSCOPY, NEGATIVE PREVIOUS VISITS. Coronavirus screen: At this time, the client does not indicate any symptoms associated with coronavirus-19. Ebola Screen: No symptoms or risks identified at this time. Initial Sepsis Screen: Does the patient meet any 2 criteria? No. Patient's initial sepsis screen is negative. Does the patient have a suspected source of infection? No. Patient's initial sepsis screen is negative. Risk Assessment: Do you want to hurt yourself or someone else? Patient reports no desire to harm self or others. Onset of symptoms is unknown. 09:03 Method Of Arrival: Ambulatory bp 09:03 Acuity: KING 3 bp Triage Assessment: 09:05 General: Appears in no apparent distress. Behavior is cooperative, appropriate for age, bp anxious. Pain: Denies pain. EENT: No deficits noted. Neuro: No deficits noted. Cardiovascular: No deficits noted. Respiratory: No deficits noted. GI: Reports diarrhea, nausea, vomiting. : No signs and/or symptoms were reported regarding the genitourinary system. Derm: No deficits noted. Musculoskeletal: No deficits noted. Historical: - Allergies: 09:05 Codeine; bp - Immunization history:: Adult Immunizations up to date. - Infectious Disease History:: Denies. - Social history:: Smoking status: unknown. - Family history:: not pertinent. - Hospitalizations: : No recent hospitalization is reported. Screenin:24 [facility] ED Fall Risk Assessment (Adult) History of falling in the last 3 months, dd2 including since admission No falls in past 3 months (0 pts) Confusion or Disorientation No (0 pts) Intoxicated or Sedated No (0 pts) Impaired Gait No (0 pts) Mobility Assist Device Used No (0 pt) Altered Elimination No (0 pt) Score/Fall Risk Level 0 - 2 = Low Risk Oriented to surroundings, Maintained a safe environment, Educated pt \T\ family on fall prevention, incl call for assistance when getting out of bed, Assessed \T\ reinforced patient's understanding of fall precautions, Hourly rounding (assess needs \T\ fall precautionary measures) done. Abuse screen: Denies threats or abuse. Denies injuries from another. Nutritional screening: No deficits noted. Tuberculosis screening: No symptoms or risk factors identified. Assessment: 11:24 General: Appears in no apparent distress. Behavior is calm, cooperative, appropriate dd2 for age. Pain: Complains of pain in left upper quadrant. Neuro: No deficits noted. Cardiovascular: No deficits noted. Respiratory: No deficits noted. Airway is patent Respiratory effort is even, unlabored, Respiratory pattern is regular, symmetrical. GI: Bowel sounds present X 4 quads. Abd is soft X 4 quads Abdomen is tender to palpation in left upper quadrant Reports lower abdominal pain, diarrhea, nausea, vomiting. : No deficits noted. No signs and/or symptoms were reported regarding the genitourinary system. EENT: No deficits noted. No signs and/or symptoms were reported regarding the EENT system. Derm: No deficits noted. No signs and/or symptoms reported regarding the dermatologic system. Musculoskeletal: No deficits noted. No signs and/or symptoms reported regarding the musculoskeletal system. Circulation, motion, and sensation intact. Range of motion: intact in all extremities. Vital Signs: 09:03 BP 144 / 78; Pulse 67; Resp 16; Temp 98; Pulse Ox 100% ; bp 11:37 BP 132 / 82; Pulse 64; Resp 16; Pulse Ox 98% on R/A; dd2 11:56 BP 135 / 71; Pulse 67; Resp 17; Pulse Ox 99% on R/A; dd2 Ana Coma Score: 11:24 Eye Response: spontaneous(4). Motor Response: obeys commands(6). Verbal Response: dd2 oriented(5). Total: 15. ED Course: 08:33 Patient arrived in ED. al6 08:35 Antione Willoughby MD is Attending Physician. rn 09:04 Triage completed. bp 09:05 Arm band placed on. bp 10:57 CBC with Diff Sent. ty 10:57 CMP Sent. ty 10:57 Lipase Sent. ty 10:57 Initial lab(s) drawn, by me, sent to lab. Inserted saline lock: 20 gauge in right ty antecubital area, using aseptic technique. Blood collected. Flushed with 10 mL NS. 11:24 Patient has correct armband on for positive identification. Bed in low position. Call dd2 light in reach. Side rails up X 1. Client placed on continuous cardiac and pulse oximetry monitoring. NIBP monitoring applied. Door closed. Noise minimized. Warm blanket given. Pillow given. Verbal reassurance given. 11:24 No provider procedures requiring assistance completed. Patient maintains SpO2 dd2 saturation greater than 95% on room air. 11:56 Provided Education on: d/c education . dd2 11:56 IV discontinued, intact, bleeding controlled, No redness/swelling at site. Pressure dd2 dressing applied. Administered Medications: No medications were administered Medication: 11:24 VIS not applicable for this client. dd2 Outcome: 11:39 Discharge ordered by . rn 11:56 Discharged to home ambulatory, dd2 11:56 Condition: stable 11:56 Discharge instructions given to patient, Instructed on discharge instructions, follow up and referral plans. Demonstrated understanding of instructions, follow-up care, 11:57 Patient left the ED. dd2 Signatures: Antione Willoughby MD MD rn Peltier, Brian RN RN Behzad Rodriguez DIANA, RN RN dd2 Ariane Martinez
[2025-03-30 12:05] VITALS: TEMP 98
[2025-03-30 12:06] VITALS: BP 135/71; O2SAT 99
== END 2025-03-30 11:57 | disposition home or self-care (01) ==
LOC: ER 08:31
DX: R10.12 Left upper quadrant pain (principal); R11.10 Vomiting, unspecified; R19.7 Diarrhea, unspecified
CPT/HCPCS: 36415; 80053; 83690; 85025; 99284